=== PATIENT | male | born 1950 | race Caucasian/White ===

== ENCOUNTER → 2016-10-14 | Outpatient (CLI) | payer OTHER ==
[~2016-10-14] MED LIST: ACET-66 PO; ASCO500 PO; ASPI81 PO; CARV12 PO; CILO100T PO; EMPA10TA PO; FISH1CAP27 PO; HYDR25TA PO; IBUP-2070 PO; LISI-662 PO; MECL-111 PO; METF500T4 PO; MULT-67 PO; OMEP20 PO
[2016-10-14 08:08] VITALS: BP 134/59
== END | disposition home or self-care (01) ==
LOC: HBOWC 08:07
PROVIDERS: ATTEND Emergency Medicine
DX: E11.621 Type 2 diabetes mellitus with foot ulcer (principal); L97.511 Non-pressure chronic ulcer of other part of right foot limited to breakdown of skin; L60.3 Nail dystrophy; E11.51 Type 2 diabetes mellitus with diabetic peripheral angiopathy without gangrene